=== PATIENT | female | born 1965 | race Caucasian/White ===

== ENCOUNTER 2016-08-30 14:41 | Emergency (ER) | payer OTHER ==
[2016-08-30 20:51] VITALS: BP 131/72
== END 2016-08-30 20:51 | disposition home or self-care (01) ==
LOC: ED 14:41
DX: M54.6 Pain in thoracic spine (principal); R09.81 Nasal congestion
CPT/HCPCS: J1885

== ENCOUNTER 2017-08-15 22:33 | Emergency (ER) | payer OTHER ==
[~2017-08-15] VITALS: Ht 160 cm; Wt 49.4 kg
[2017-08-15 22:41] VITALS: Ht 160 cm; Wt 49.4 kg
[2017-08-16 00:12] VITALS: BP 130/73
== END 2017-08-16 00:12 | disposition home or self-care (01) ==
LOC: ED 22:33
DX: H10.213 Acute toxic conjunctivitis, bilateral (principal)
CPT/HCPCS: J7030